=== PATIENT | male | born 1965 | race Caucasian/White ===

== ENCOUNTER 2019-10-13 13:33 | Day surgery (SDC) | payer BC ==
[~2019-10-13] VITALS: Ht 185.4 cm; Wt 121.5 kg
[2019-10-13] MEDS ORDERED: TENORETIC 100 11 TAB PO (14:12)
[2019-10-13] MEDS ORDERED: OZEMPIC1 MG/0.75 SQ (14:13)
[2019-10-13] MEDS ORDERED: TRESIBA100 UNIT/1 SQ (14:14)
[2019-10-13] MEDS ORDERED: FIASP 100100 UNIT/1 SQ (14:15)
[2019-10-13] MEDS ORDERED: PLAVIX 75MG TAB75 MG PO (14:16)
[2019-10-13] MEDS ORDERED: PRINIVIL20 MG PO (14:16)
[2019-10-13] MEDS ORDERED: LASIX 40MG TABL40 MG PO (14:17)
[2019-10-13] MEDS ORDERED: PLETAL 100MG T100 MG PO (14:17)
[2019-10-13] MEDS ORDERED: PROTONIX 40MG T40 MG PO (14:18)
[2019-10-13] MEDS ORDERED: KLOR-CON M1010 MEQ PO (14:19)
[2019-10-13] MEDS ORDERED: LOFIBRA160 MG PO (14:20)
[2019-10-13] MEDS ORDERED: GLUCOPHAGE1000 MG PO (14:20)
[2019-10-13] MEDS ORDERED: LIPITOR 80MG80 MG PO (14:21)
[2019-10-13] MEDS ORDERED: XARELTO2.5 MG PO (14:22)
[2019-10-13] MEDS ORDERED: BACTRIM DS 8001 TAB PO (14:22)
[2019-10-13] MEDS ORDERED: VASCEPA1 GM PO (14:23)
[2019-10-13 14:37] VITALS: BP 149/88; PULSE 86; TEMP 98.1
[2019-10-13 16:30] VITALS: BP 161/80; PULSE 84; TEMP 98
--- NOTE | 2019-10-13 16:38 | NUR ---
PT TO ROOM 330 PER CART WITH REPORT FROM ARCELIA JUAREZ. PT DENIES NEEDS. WOUND VAC TO RIGHT CALF INTACT. STENTS PLACED DURING ERCP. VSS.
[2019-10-13 16:47] VITALS: BP 155/80; PULSE 81; TEMP 98
--- NOTE | 2019-10-13 16:56 | NUR ---
PT RESTING IN BED PROVIDED FOOD WHEN READY, ICE WATER. PT HAS VOIDED. DENIES PAIN OR NAUSEA.
[2019-10-13 17:00] VITALS: BP 168/80; PULSE 88; TEMP 98
[2019-10-13 17:15] VITALS: BP 164/81; PULSE 81; TEMP 98
--- NOTE | 2019-10-13 18:00 | NUR ---
DISCHARGE INSTRUCTIONS REVIEWED WITH PT. QUESTIONS ANSWERED. PT LEFT FLOOR AMBULATORY.
== END 2019-10-13 18:02 | disposition home or self-care (01) ==
LOC: SDCO 13:33
DX: K86.1 Other chronic pancreatitis (principal); K83.8 Other specified diseases of biliary tract; R93.3 Abnormal findings on diagnostic imaging of other parts of digestive tract; R94.5 Abnormal results of liver function studies; R17 Unspecified jaundice; I10 Essential (primary) hypertension; E11.9 Type 2 diabetes mellitus without complications; Z88.5 Allergy status to narcotic agent; Z79.4 Long term (current) use of insulin; Z79.01 Long term (current) use of anticoagulants; Z79.02 Long term (current) use of antithrombotics/antiplatelets
CPT/HCPCS: C1769; C2625; J2704; J3010; J7030; Q9967